=== PATIENT | male | born 1960 | race Caucasian/White ===

== ENCOUNTER 2018-06-25 11:34 | Emergency (ER) | payer OTHER ==
[~2018-06-25] VITALS: Ht 170.1 cm; Wt 59.0 kg
[2018-06-25] MEDS ORDERED: CEPHALEXIN500 M1 PO (13:34)
== END 2018-06-25 13:42 | disposition home or self-care (01) ==
LOC: ED 11:34
DX: S51.812A Laceration without foreign body of left forearm, initial encounter (principal); Z23 Encounter for immunization; W45.8XXA Other foreign body or object entering through skin, initial encounter; Y93.89 Activity, other specified; Y92.89 Other specified places as the place of occurrence of the external cause; Y99.8 Other external cause status